=== PATIENT | male | born 1950 | race Caucasian/White ===

== ENCOUNTER 2016-05-07 15:35 | Emergency (ER) | payer OTHER ==
[2016-05-07] MEDS ORDERED: NS 1,000 ML IV ONE (17:25)
--- NOTE | 2016-05-07 17:43 | EDPHY ---
General - History Smoking Status: Never smoked Narrative: CHIEF COMPLAINT: left lower quadrant abdominal pain HISTORY OF PRESENT ILLNESS: reports pain starting late last night. Pain has been mild but intermittently waxes and wanes. Never more than a 3/10. He does localize this to the left lower quadrant. Does not radiate. No fever or chills. No nausea or vomiting. He felt as though he was going to have diarrhea but did not. He did report some flatulence last night. he attempted over-the- counter medication stool softeners without improvement. Went to urgent care today, and they sent him here for the possibility of diverticulitis. No previous incidence of diverticulitis. No abdominal surgeries. No bloody stools or emesis. No prior diagnosis of diverticulosis. He is visiting from [place] and scheduled to return home tomorrow. PREVIOUS ABDOMINAL SURGERIES/DIAGNOSES: GERD NPO: Clear liquids today. Solid last night REVIEW OF SYSTEMS: Ten systems reviewed and are negative unless otherwise noted in the HPI EXAMINATION: General Appearance: Alert, no distress Head: normocephalic, atraumatic Eyes: Pupils equal and round, no conjunctival pallor or injection ENT, Mouth: Mucous membranes moist. Uvula midline. No erythema or edema Neck: Normal inspection, supple, non-tender Respiratory: Lungs are clear to auscultation. No wheezing, rhonchi or crackles Cardiovascular: Regular rate and rhythm. No murmur. Pulses intact distally. Gastrointestinal: Abdomen is soft . Mild tenderness in left lower quadrant. No guarding. No rebound. No Rovsing. No tenderness in the remainder quadrants. No tympany or rigidity. Nonacute, benign abdomen. Back: non-tender, no bony abnormalities Neurological: A&O, nonfocal, normal gait . Strength is symmetric in all limbs. Skin: Warm and dry, no rash Extremities: Nontender, no pedal edema Psychiatric: Mood and affect normal DIFFERENTIAL DIAGNOSES: Including but not limited to Diverticulitis, colitis, enteritis, cystitis, pancreatitis MDM: 5:35 p.m. left lower quadrant abdominal pain. Patient's abdominal exam is benign. He does have mild tenderness left lower quadrant. There is no guarding. No tympany. He has a nonacute abdomen. Vital signs are stable. Laboratory studies and IV fluids have been ordered. 6:50 p.m. left lower quadrant abdominal pain with mild leukocytosis. No fever. No chills. His pain is actually improved at this time compared to this morning. His abdominal exam remains benign. Had a very lengthy discussion with him regarding CT scan versus no CT scan. Feel this may be an early diverticulitis, but my clinical suspicion for perforation or abscess is very low. Given his abdominal examination, vital signs and history, I feel that we can treat him with medication without exposing him to the radiation of a CT scan. I did offer a CAT scanned him and he has declined. We did discuss the risks, benefits and alternatives, he is well-versed in this. He is capable of making this decision. And I do agree that we can withhold the CT scan at this time with the following precautions. We will start treatment with antibiotics now, he will continue those upon discharge home. Additionally he is to return to the ER for any worsening of pain, any fever or any nausea. He is comfortable with this plan. I have answered all his questions. He will be discharged home in stable condition. He is instructed to contact his primary care physician in the morning to follow up with them as soon as he returns home to [place] tomorrow. ED Precautions: Worsening pain. Fever. Bloody stools. Bloody emesis. Constipation or diarrhea. SUPERVISION: This patient was independently evaluated without the aide of supervising physician. Case discussed with Dr. Mendiola (Blaine Pastor) Medical Decision Making: I did not see this patient while he was in the emergency department. However his care was discussed with the PA while the patient was in the department. I agree with treatment plan and management (Charles Mendiola) - Objective Vital Signs: Initial Vital Signs Temperature (C) 36.9 C 05/07/16 15:40 Heart Rate 84 05/07/16 15:40 Respiratory Rate 17 05/07/16 15:40 Blood Pressure 130/87 H 05/07/16 15:40 O2 Sat (%) 93 05/07/16 15:40 O2 Delivery Mode Room Air Allergies/Adverse Reactions: No Known Allergies Allergy (Unverified 05/07/16 15:38) Home Medications: Medication Instructions Recorded Aspirin 81mg (*) 05/07/16 Ciprofloxacin [Cipro] 500 mg PO TID #30 tab 05/07/16 Metoprolol Succinate Xr 05/07/16 Rebaprazole 05/07/16 Valsartan 05/07/16 metroNIDAZOLE [Flagyl 500 mg (*)] 500 mg PO TID #30 tab 05/07/16 Laboratory Results: Laboratory Results 05/07/16 17:42 05/07/16 17:42 Medications Given: Discontinued Medications Ciprofloxacin (Cipro) 500 mg PO EDNOW ONE PRN Reason: Protocol Stop: 05/07/16 18:51 Last Admin: 05/07/16 19:40 Dose: 500 mg Sodium Chloride (Ns) 1,000 mls @ 0 mls/hr IV ONCE ONE PRN Reason: Wide Open Stop: 05/07/16 17:26 Last Admin: 05/07/16 17:42 Dose: 1,000 mls Metronidazole (Flagyl) 500 mg PO EDNOW ONE PRN Reason: Protocol Stop: 05/07/16 18:51 Last Admin: 05/07/16 19:41 Dose: 500 mg Departure - Departure Disposition: Home, Routine, Self-Care Clinical Impression: Abdominal pain, left lower quadrant Condition: Good Instructions: Acute Abdominal Pain (ED) Additional Instructions: antibiotics as discussed. Return to the ER for any worsening of pain, any nausea or vomiting or any fever. Follow-up with your primary care physician as he returns home to [place]. Present to the nearest ER should your travel began and her symptoms worsen. Referrals: MARY HAMEED [Other] - As per Instructions Prescriptions: Ciprofloxacin [Cipro] 500 mg PO TID #30 tab metroNIDAZOLE [Flagyl 500 mg (*)] 500 mg PO TID #30 tab
[2016-05-07 18:11] LABS: % IMMATURE GRANULYOCYTES 0.4 % (0.0-1.1); ABSOLUTE IMMATURE GRANULOCYTES 0.05 10^3/uL (0.00-0.10); ADD DIFF? NO; ADD MORPH? NO; ADD SCAN? NO; ATYPICAL LYMPHOCYTE FLAG 0 (0-99); FRAGMENT RBC FLAG 0 (0-99); HEMATOCRIT 47.1 % (40.0-51.0); HEMOGLOBIN 15.7 g/dL (13.7-17.5); LEFT SHIFT FLG 0 (0-99); LIPEMIA HEMOLYSIS FLAG 80 (0-99); MEAN CELL HEMOGLOBIN 29.3 pg (27.9-34.1); MEAN CELL HEMOGLOBIN CONCENTR. 33.3 g/dL (32.4-36.7); MEAN CELL VOLUME 87.9 fL (81.5-99.8); MEAN PLATELET VOLUME 12.3 fL (8.7-11.7); PLATELET CLUMPS FLAG 20 (0-99); PLATELET COUNT 196 10^3/uL (150-400); RED BLOOD CELL COUNT 5.36 10^6/uL (4.40-6.38); RED CELL DISTRIBUTION WIDTH 14.2 % (11.5-15.2)
[2016-05-07 18:15] LABS: COLOR YELLOW; LEUKOCYTE ESTERASE,URINE NEGATIVE (NEGATIVE); NITRITE,URINE NEGATIVE (NEGATIVE)
[2016-05-07 18:17] LABS: INR 1.06 (0.83-1.16); PROTIME(PATIENT) 13.7 SEC (12.0-15.0)
[2016-05-07 18:18] LABS: APTT 32.1 SEC (23.0-38.0)
[2016-05-07 18:21] LABS: MUCUS TRACE /lpf (NONE-1+)
[2016-05-07 18:28] LABS: ALANINE AMINOTRANSFERASE 43 IU/L (21-72); ALKALINE PHOSPHATASE 68 IU/L (38-126); ANION GAP 12 mEq/L (8-16); ASPARTATE AMINOTRANSFERASE 32 IU/L (17-59); BILIRUBIN-CONJUGATED 0.4 mg/dL (0.0-0.5); BILIRUBIN-UNCONJUGATED 1.6 mg/dL (0.0-1.1); CALCIUM 9.9 mg/dL (8.5-10.4); CARBON DIOXIDE 29 mEq/l (22-31); CHLORIDE 97 mEq/L (97-110); CREATININE 0.9 mg/dL (0.7-1.3); GLOMERULAR FILTRATION RATE > 60; GLUCOSE 93 mg/dL (70-100); SODIUM 138 mEq/L (134-144); TOTAL PROTEIN 7.9 g/dL (6.3-8.2)
[2016-05-07] MEDS ORDERED: CIPROFLOXACIN 500 MG TAB PO ONE (18:50)
[2016-05-07] MEDS ORDERED: metroNIDAZOLE 500 MG TAB PO ONE (18:50)
[2016-05-07 20:19] VITALS: BP 163/95; PULSE 83; RESP 16; TEMP 98.2; O2SAT 95
== END 2016-05-07 19:40 | disposition home or self-care (01) ==
DX: R10.32 Left lower quadrant pain (principal); Z79.82 Long term (current) use of aspirin